=== PATIENT | male | born 1940 | race Caucasian/White ===

== ENCOUNTER 2016-09-16 16:06 | Inpatient (IN) | payer MEDICARE ==
[~2016-09-16] VITALS: Ht 167.6 cm; Wt 99.3 kg
[~2016-09-16 16:06] MED LIST: ALEN70TA3; AMIT10TA PO; CALC600T4; DOXA2TAB9; DOXA2TAB9 PO; GABA600T14 PO; GUAI600T53 PO; IPRA14.7; LEVO500T33 PO; LISI5TAB; LOVA20TA2 PO; METF-86 PO; MORP60CA16 PO; OXYC10TA32 PO; PERFORMIST; PRED10TA14; PRED20TA PO; TAMS-11 PO; [UNRECOGNIZED DRUG - OTHER]
[2016-09-16] MEDS ORDERED: ONDANSETRON 2MG/ML, 2ML IVPush ONE (17:00)
[2016-09-16 18:06] LABS: BLOOD UREA NITROGEN 32 mg/dL (7-18)
[2016-09-16 18:10] LABS: DIFF TOTAL CELLS COUNTED 100 CELL DIFF
[2016-09-16 18:12] LABS: VERIFY COUNTS? YES
[2016-09-16] MEDS ORDERED: ONDANSETRON 2MG/ML, 2ML ONE (18:16)
[2016-09-16] MEDS ORDERED: CEFTRIAXONE PMX 1GM/50ML 50 ML ONE ×2 (18:16→22:47)
[2016-09-16] MEDS ORDERED: HYDROmorphone 1 MG/ML, 1ML ONE ×2 (18:16→19:41)
[2016-09-16] MEDS: HYDROmorphone 1 MG/ML, 1ML IVPush PRN ×2 (18:18→19:43)
[2016-09-16] MEDS: CEFTRIAXONE PMX 1GM/50ML 50 ML IVPB ONE ×2 (18:24→18:48)
[2016-09-16] MEDS ORDERED: KETAMINE 10 MG/ML, 20ML ONE ×2 (19:53→21:16)
[2016-09-16] MEDS ORDERED: KETAMINE 100 MG/ML, 5ML IV ONE (20:00)
[2016-09-16] MEDS ORDERED: SODIUM CHLORIDE 0.9% 1,000ML IVBOLUS ONE ×2 (21:00→21:30)
[2016-09-16] MEDS ORDERED: LIDOCAINE 1%, 20ML ONE (21:54)
[2016-09-16 22:22] LABS: GLUCOSE, CSF 94 mg/dL (40-80)
[2016-09-16] MEDS ORDERED: KETAMINE 10 MG/ML, 20ML IV ONE (22:30)
[2016-09-16] MEDS ORDERED: VANCOMYCIN PER PHARMACY MC PRN ×2 (23:00)
[2016-09-16] MEDS ORDERED: CEFTRIAXONE PMX 1GM/50ML 50 ML IVPB ONE (23:00)
[2016-09-16] MEDS ORDERED: CEFTRIAXONE PMX 2GM/50ML 50 ML IV SCH (23:00)
[2016-09-16] MEDS ORDERED: VANCOMYCIN 2,000 MG in SODIUM CHLORIDE 0.9% 500 ML IV ONE (23:00)
[2016-09-16] MEDS: SODIUM CHLORIDE 0.9% 1,000 ML IV SCH (23:28)
[2016-09-16] MEDS ORDERED: BISACODYL 10 MG SUPP PR PRN (23:30)
[2016-09-16] MEDS: SODIUM CHLORIDE 0.9% IV SCH (23:30)
[2016-09-16] MEDS: ACYCLOVIR IV SCH (23:30)
[2016-09-16] MEDS ORDERED: ONDANSETRON 2MG/ML, 2ML IVP PRN (23:30)
[2016-09-16] MEDS ORDERED: INSULIN SINGLE DOSE, ER SQ-INSULIN ONE (23:53)
[2016-09-16] MEDS: INSULIN REGULAR 100 UNITS/ML, 3ML VIAL SQ-INSULIN SCH (23:55)
[2016-09-17] MEDS ORDERED: HYDROmorphone 1 MG/ML, 1ML ONE (00:44)
[2016-09-17] MEDS: HYDROmorphone 2 MG/ML, 1ML IV PRN ×6 (00:47→20:16)
[2016-09-17] MEDS ORDERED: HALOPERIDOL 5 MG/ML ONE (00:48)
[2016-09-17] MEDS ORDERED: HALOPERIDOL 5 MG/ML IV PRN ×2 (01:00)
[2016-09-17] MEDS ORDERED: PHARMACOKINETIC CONSULTATION MC ONE (02:00)
[2016-09-17] MEDS ORDERED: PHARMACOKINETIC MONITORING MC PRN (02:00)
[2016-09-17] MEDS ORDERED: SULFAMETH./TRIMETHOPRIM 10 ML in DEXTROSE 5% 250 ML IV SCH (03:00)
[2016-09-17] MEDS ORDERED: LIDOCAINE GEL 2%, 5ML TP STA ×2 (03:22→03:38)
[2016-09-17 04:47] LABS: ASPARTATE AMINO TRANSFERASE 31 U/L (15-37); BLOOD UREA NITROGEN 33 mg/dL (7-18)
[2016-09-17 05:06] VITALS: BP 117/54
[2016-09-17] MEDS: INSULIN REGULAR 100 UNITS/ML, 3ML VIAL SQ-INSULIN SCH ×3 (05:33→17:55)
[2016-09-17 05:50] VITALS: BP 154/85
[2016-09-17] MEDS: DEXAMETHASONE 4 MG/ML, 1ML IVPush SCH ×3 (07:59→20:16)
[2016-09-17] MEDS: SODIUM CHLORIDE 0.9% IV SCH (07:59)
[2016-09-17] MEDS: ACYCLOVIR IV SCH (07:59)
[2016-09-17] MEDS ORDERED: PROPOFOL 10 MG/ML, 100ML IV ONE (08:00)
[2016-09-17] MEDS ORDERED: PROPOFOL 10 MG/ML, 20ML ONE (08:00)
[2016-09-17] MEDS ORDERED: VECURONIUM 10 MG ONE (08:00)
[2016-09-17] MEDS ORDERED: ALBUTEROL/IPRATROPIUM 2.5MG/0.5MG, 3 ML ONE (08:29)
[2016-09-17] MEDS: SODIUM CHLORIDE 0.9% 1,000 ML IV SCH ×2 (09:19→23:00)
[2016-09-17] MEDS: VANCOMYCIN 2,000 MG in SODIUM CHLORIDE 0.9% 500 ML IV SCH ×3 (09:21→23:57)
[2016-09-17] MEDS ORDERED: RIFAMPIN 600 MG IVPB SCH (10:30)
[2016-09-17] MEDS ORDERED: PROPOFOL 10 MG/ML, 20ML IVPush ONE (11:00)
[2016-09-17] MEDS ORDERED: ALBUTEROL/IPRATROPIUM 2.5MG/0.5MG, 3 ML NPPB SCH (11:00)
[2016-09-17 12:35] LABS: ABG COLLECTION SITE RIGHT RADIAL; COLLATERAL CIRCULATION TESTING NORMAL
[2016-09-17] MEDS ORDERED: GADOBUTROL 10 MMOL/10 ML PFS ONE (17:18)
[2016-09-17] MEDS: ACETAMINOPHEN 650 MG SUPP PR PRN (17:49)
[2016-09-17] MEDS: ALBUTEROL/IPRATROPIUM 2.5MG/0.5MG, 3 ML INLINE SCH ×2 (19:13→22:26)
[2016-09-17] MEDS: PROPOFOL 100 ML IV PRN (20:16)
[2016-09-18] MEDS: HYDROmorphone 2 MG/ML, 1ML IV PRN ×6 (00:28→22:18)
[2016-09-18] MEDS: INSULIN REGULAR 100 UNITS/ML, 3ML VIAL SQ-INSULIN SCH ×5 (00:31→23:30)
[2016-09-18] MEDS: DEXAMETHASONE 4 MG/ML, 1ML IVPush SCH ×4 (02:05→20:01)
[2016-09-18] MEDS: PROPOFOL 100 ML IV PRN ×3 (02:06→19:35)
[2016-09-18] MEDS: ALBUTEROL/IPRATROPIUM 2.5MG/0.5MG, 3 ML INLINE SCH ×6 (02:50→21:56)
[2016-09-18 04:00] VITALS: BP 118/56
[2016-09-18 05:16] LABS: ABG COLLECTION SITE LEFT RADIAL; BLOOD UREA NITROGEN 29 mg/dL (7-18); COLLATERAL CIRCULATION TESTING NORMAL
[2016-09-18 05:21] LABS: ASPARTATE AMINO TRANSFERASE 100 U/L (15-37)
[2016-09-18] MEDS: SODIUM CHLORIDE 0.9% 1,000 ML IV SCH (07:34)
[2016-09-18] MEDS: INSULIN DETEMIR 100 UNITS/ML, PEN SQ-INSULIN SCH ×2 (09:36→21:04)
[2016-09-18] MEDS: RIFAMPIN 600 MG in SODIUM CHLORIDE 0.9% 100 ML IV SCH (09:36)
[2016-09-18] MEDS: VANCOMYCIN 2,000 MG in SODIUM CHLORIDE 0.9% 500 ML IV SCH ×2 (09:38→11:05)
[2016-09-18] MEDS: OXYcodone 5 MG/5 ML ORAL.SOL UDC PO PRN ×2 (11:09→19:58)
[2016-09-18] MEDS ORDERED: methylPREDNISolone SOD SUCC 125 MG/2 ML ONE (13:23)
[2016-09-18] MEDS ORDERED: BUPIVACAINE/PF-EPI 0.25% 1:200K ONE (13:23)
[2016-09-18] MEDS ORDERED: THROMBIN 5,000 UNIT VIAL TP ONE (13:24)
[2016-09-18] MEDS ORDERED: BACITRACIN 50,000 UNIT ONE (13:24)
[2016-09-18] MEDS ORDERED: MIDAZOLAM 1 MG/ML, 2ML ONE (13:48)
[2016-09-18] MEDS ORDERED: FENTANYL PF 250 MCG/5ML ONE ×2 (13:49→16:05)
[2016-09-18] MEDS ORDERED: BACITRACIN OINT 500U/GM, 15 GM ONE (14:04)
[2016-09-18] MEDS ORDERED: PROPOFOL 10 MG/ML, 20ML ONE (14:25)
[2016-09-18] MEDS ORDERED: ROCURONIUM 10 MG/ML ONE (14:25)
[2016-09-18] MEDS ORDERED: PHENYLEPHRINE 10 MG/ML ONE (14:25)
[2016-09-18] MEDS ORDERED: SUCCINYLCHOLINE 20 MG/ML, 10ML ONE (14:25)
[2016-09-18] MEDS ORDERED: KETAMINE 10 MG/ML, 20ML ONE (14:29)
[2016-09-18] MEDS ORDERED: VANCOMYCIN 1,000 MG ONE (14:59)
[2016-09-18] MEDS ORDERED: DIAZEPAM 5 MG/ML, 2ML IVPush PRN (17:00)
[2016-09-18] MEDS ORDERED: PHARMACY MAY ADJ FOR RENAL FX MC PRN (17:00)
[2016-09-18] MEDS ORDERED: ONDANSETRON 2MG/ML, 2ML IVPush PRN (17:00)
[2016-09-18 18:07] LABS: ABG COLLECTION SITE RIGHT RADIAL; COLLATERAL CIRCULATION TESTING NORMAL
[2016-09-18] MEDS ORDERED: VANCOMYCIN PMX 1GM/200ML 200 ML IV ONE (22:00)
[2016-09-19] MEDS: OXYcodone 5 MG/5 ML ORAL.SOL UDC PO PRN ×3 (01:21→10:51)
[2016-09-19] MEDS: SODIUM CHLORIDE 0.9% 1,000 ML IV SCH ×3 (01:36→17:26)
[2016-09-19] MEDS: PROPOFOL 100 ML IV PRN ×2 (01:37→06:13)
[2016-09-19] MEDS: DEXAMETHASONE 4 MG/ML, 1ML IVPush SCH ×2 (02:33→17:26)
[2016-09-19] MEDS: ALBUTEROL/IPRATROPIUM 2.5MG/0.5MG, 3 ML INLINE SCH ×5 (03:00→23:00)
[2016-09-19 04:00] VITALS: BP 142/56
[2016-09-19 04:57] LABS: ABG COLLECTION SITE LEFT RADIAL; COLLATERAL CIRCULATION TESTING NORMAL
[2016-09-19] MEDS: INSULIN REGULAR 100 UNITS/ML, 3ML VIAL SQ-INSULIN SCH ×3 (05:20→17:07)
[2016-09-19 05:26] LABS: ASPARTATE AMINO TRANSFERASE 82 U/L (15-37); BLOOD UREA NITROGEN 28 mg/dL (7-18)
[2016-09-19] MEDS: HYDROmorphone 2 MG/ML, 1ML IV PRN ×3 (08:19→18:35)
[2016-09-19] MEDS: RIFAMPIN 600 MG in SODIUM CHLORIDE 0.9% 100 ML IV SCH (08:56)
[2016-09-19] MEDS: INSULIN DETEMIR 100 UNITS/ML, PEN SQ-INSULIN SCH ×2 (09:00→21:17)
[2016-09-19] MEDS: VANCOMYCIN 2,000 MG in SODIUM CHLORIDE 0.9% 500 ML IV SCH ×2 (10:51→21:17)
[2016-09-19] MEDS ORDERED: hydrALAzine 20 MG/ML, 1ML IV PRN ×2 (13:30)
[2016-09-19] MEDS: morphine SULFATE 60 MG TABLET.ER PO SCH (14:26)
[2016-09-19] MEDS ORDERED: FUROSEMIDE 40 MG/4 ML IV ONE (16:30)
[2016-09-19] MEDS: ACETAMINOPHEN 650 MG SUPP PR PRN (17:37)
[2016-09-19] MEDS: morphine SULFATE 10 MG/ML, 1ML IVPush PRN (21:21)
[2016-09-20] MEDS: INSULIN REGULAR 100 UNITS/ML, 3ML VIAL SQ-INSULIN SCH ×4 (01:05→18:27)
[2016-09-20] MEDS: morphine SULFATE 60 MG TABLET.ER PO SCH ×2 (02:30→14:00)
[2016-09-20] MEDS: ALBUTEROL/IPRATROPIUM 2.5MG/0.5MG, 3 ML INLINE SCH ×3 (03:00→11:00)
[2016-09-20] MEDS: HYDROmorphone 2 MG/ML, 1ML IV PRN ×2 (03:17→08:37)
[2016-09-20 05:48] VITALS: BP 172/65
[2016-09-20] MEDS: ACETAMINOPHEN 650 MG SUPP PR PRN (05:48)
[2016-09-20 05:57] LABS: BLOOD UREA NITROGEN 29 mg/dL (7-18)
[2016-09-20] MEDS: DEXAMETHASONE 4 MG/ML, 1ML IVPush SCH ×2 (06:44→18:27)
[2016-09-20] MEDS ORDERED: PROPOFOL 10 MG/ML, 20ML ONE (08:00)
[2016-09-20] MEDS ORDERED: VECURONIUM 10 MG ONE (08:00)
[2016-09-20] MEDS ORDERED: PROPOFOL 10 MG/ML, 100ML IV ONE (08:00)
[2016-09-20] MEDS: SODIUM CHLORIDE 0.9% 1,000 ML IV SCH (08:00)
[2016-09-20] MEDS ORDERED: FUROSEMIDE 40 MG/4 ML ONE (08:17)
[2016-09-20] MEDS ORDERED: FUROSEMIDE 40 MG/4 ML IV ONE (08:30)
[2016-09-20] MEDS: FUROSEMIDE 40 MG/4 ML IV SCH ×2 (08:37→20:49)
[2016-09-20] MEDS: RIFAMPIN 600 MG in SODIUM CHLORIDE 0.9% 100 ML IV SCH (10:28)
[2016-09-20] MEDS: VANCOMYCIN 2,000 MG in SODIUM CHLORIDE 0.9% 500 ML IV SCH ×2 (10:28→22:06)
[2016-09-20] MEDS ORDERED: PROPOFOL 10 MG/ML, 20ML IV ONE (11:00)
[2016-09-20] MEDS: INSULIN DETEMIR 100 UNITS/ML, PEN SQ-INSULIN SCH ×2 (11:33→20:49)
[2016-09-20] MEDS: PROPOFOL 100 ML IV PRN ×4 (11:34→22:06)
[2016-09-20 12:19] LABS: ABG COLLECTION SITE RIGHT BRACHIAL; COLLATERAL CIRCULATION TESTING NORMAL
[2016-09-20] MEDS ORDERED: PROPOFOL 100 ML IV PRN (12:30)
[2016-09-20] MEDS: ALBUTEROL/IPRATROPIUM 2.5MG/0.5MG, 3 ML NPPB SCH (22:15)
[2016-09-21] MEDS: morphine SULFATE 60 MG TABLET.ER PO SCH ×2 (01:00→13:37)
[2016-09-21] MEDS: INSULIN REGULAR 100 UNITS/ML, 3ML VIAL SQ-INSULIN SCH ×5 (01:00→22:42)
[2016-09-21] MEDS: ALBUTEROL/IPRATROPIUM 2.5MG/0.5MG, 3 ML NPPB SCH ×6 (01:58→23:00)
[2016-09-21] MEDS: HYDROmorphone 2 MG/ML, 1ML IV PRN ×2 (03:45→22:23)
[2016-09-21] MEDS: PROPOFOL 100 ML IV PRN ×5 (03:46→23:56)
[2016-09-21 04:00] VITALS: BP 98/45
[2016-09-21] MEDS: ACETAMINOPHEN 650 MG SUPP PR PRN (04:00)
[2016-09-21 04:58] LABS: ABG COLLECTION SITE NOT DOCUMENTED
[2016-09-21 05:17] LABS: BLOOD UREA NITROGEN 39 mg/dL (7-18)
[2016-09-21 05:18] LABS: ASPARTATE AMINO TRANSFERASE 48 U/L (15-37)
[2016-09-21] MEDS: DEXAMETHASONE 4 MG/ML, 1ML IVPush SCH ×2 (06:04→17:57)
[2016-09-21] MEDS: VANCOMYCIN 2,000 MG in SODIUM CHLORIDE 0.9% 500 ML IV SCH ×2 (10:14→21:56)
[2016-09-21] MEDS: INSULIN DETEMIR 100 UNITS/ML, PEN SQ-INSULIN SCH ×2 (10:18→20:55)
[2016-09-21] MEDS: RIFAMPIN 600 MG in SODIUM CHLORIDE 0.9% 100 ML IV SCH (12:37)
[2016-09-21] MEDS ORDERED: POTASSIUM CHLORIDE 20 MEQ TAB.ER.PRT PO ONE (17:00)
[2016-09-22] MEDS: ALBUTEROL/IPRATROPIUM 2.5MG/0.5MG, 3 ML NPPB SCH ×6 (01:59→21:29)
[2016-09-22] MEDS: morphine SULFATE 60 MG TABLET.ER PO SCH ×2 (02:00→12:04)
[2016-09-22] MEDS: PROPOFOL 100 ML IV PRN ×6 (02:53→22:32)
[2016-09-22 04:00] VITALS: BP 122/44
[2016-09-22] MEDS: HYDROmorphone 2 MG/ML, 1ML IV PRN ×5 (05:26→22:51)
[2016-09-22] MEDS: INSULIN REGULAR 100 UNITS/ML, 3ML VIAL SQ-INSULIN SCH ×4 (05:30→23:06)
[2016-09-22] MEDS: DEXAMETHASONE 4 MG/ML, 1ML IVPush SCH ×2 (06:31→18:27)
[2016-09-22] MEDS: OXYcodone 5 MG/5 ML ORAL.SOL UDC PO PRN ×2 (07:52→14:28)
[2016-09-22 08:44] LABS: ABG COLLECTION SITE RIGHT RADIAL; COLLATERAL CIRCULATION TESTING NORMAL
[2016-09-22 08:55] LABS: BLOOD UREA NITROGEN 39 mg/dL (7-18)
[2016-09-22 08:58] LABS: ASPARTATE AMINO TRANSFERASE 29 U/L (15-37)
[2016-09-22] MEDS: INSULIN DETEMIR 100 UNITS/ML, PEN SQ-INSULIN SCH ×3 (09:00→20:35)
[2016-09-22] MEDS: VANCOMYCIN 2,000 MG in SODIUM CHLORIDE 0.9% 500 ML IV SCH ×2 (10:11→21:53)
[2016-09-22] MEDS: RIFAMPIN 600 MG in SODIUM CHLORIDE 0.9% 100 ML IV SCH (12:52)
[2016-09-22] MEDS: CLINDAMYCIN PMX 600MG/50ML 50 ML IV SCH ×2 (14:29→20:35)
[2016-09-23] MEDS: morphine SULFATE 60 MG TABLET.ER PO SCH ×2 (02:00→14:00)
[2016-09-23] MEDS: PROPOFOL 100 ML IV PRN ×6 (02:26→21:15)
[2016-09-23] MEDS: ALBUTEROL/IPRATROPIUM 2.5MG/0.5MG, 3 ML NPPB SCH ×6 (02:42→23:00)
[2016-09-23] MEDS: HYDROmorphone 2 MG/ML, 1ML IV PRN ×4 (03:28→19:40)
[2016-09-23 04:00] VITALS: BP 130/59
[2016-09-23 04:49] LABS: ABG COLLECTION SITE LEFT RADIAL; COLLATERAL CIRCULATION TESTING NORMAL
[2016-09-23 05:03] LABS: ASPARTATE AMINO TRANSFERASE 23 U/L (15-37); BLOOD UREA NITROGEN 35 mg/dL (7-18)
[2016-09-23] MEDS: CLINDAMYCIN PMX 600MG/50ML 50 ML IV SCH ×3 (05:26→21:15)
[2016-09-23] MEDS: DEXAMETHASONE 4 MG/ML, 1ML IVPush SCH ×2 (05:52→18:26)
[2016-09-23] MEDS: INSULIN REGULAR 100 UNITS/ML, 3ML VIAL SQ-INSULIN SCH ×4 (05:52→22:11)
[2016-09-23] MEDS: VANCOMYCIN 2,000 MG in SODIUM CHLORIDE 0.9% 500 ML IV SCH (09:56)
[2016-09-23] MEDS: INSULIN DETEMIR 100 UNITS/ML, PEN SQ-INSULIN SCH ×2 (09:58→22:00)
[2016-09-23] MEDS: RIFAMPIN 600 MG in SODIUM CHLORIDE 0.9% 100 ML IV SCH (15:24)
[2016-09-23] MEDS: VANCOMYCIN 1,800 MG in SODIUM CHLORIDE 0.9% 500 ML IV SCH (22:10)
[2016-09-24] MEDS: PROPOFOL 100 ML IV PRN ×7 (00:33→21:52)
[2016-09-24] MEDS: HYDROmorphone 2 MG/ML, 1ML IV PRN ×3 (01:42→17:24)
[2016-09-24] MEDS: morphine SULFATE 60 MG TABLET.ER PO SCH ×2 (02:00→14:00)
[2016-09-24] MEDS: ALBUTEROL/IPRATROPIUM 2.5MG/0.5MG, 3 ML NPPB SCH ×6 (02:37→22:06)
[2016-09-24 04:29] VITALS: BP 125/48
[2016-09-24] MEDS: CLINDAMYCIN PMX 600MG/50ML 50 ML IV SCH ×3 (04:30→20:59)
[2016-09-24 04:43] LABS: ASPARTATE AMINO TRANSFERASE 32 U/L (15-37); BLOOD UREA NITROGEN 29 mg/dL (7-18)
[2016-09-24 04:49] LABS: ABG COLLECTION SITE RIGHT RADIAL; COLLATERAL CIRCULATION TESTING NORMAL
[2016-09-24 05:33] LABS: ABG COLLECTION SITE ARTERIAL LINE
[2016-09-24] MEDS: INSULIN REGULAR 100 UNITS/ML, 3ML VIAL SQ-INSULIN SCH ×3 (06:02→17:23)
[2016-09-24] MEDS: DEXAMETHASONE 4 MG/ML, 1ML IVPush SCH ×2 (06:02→17:19)
[2016-09-24] MEDS: FAMOTIDINE 20 MG/2 ML IVPush SCH ×2 (09:05→20:44)
[2016-09-24] MEDS: QUETIAPINE 25MG TABLET PO SCH ×2 (09:05→17:22)
[2016-09-24] MEDS: VANCOMYCIN 1,800 MG in SODIUM CHLORIDE 0.9% 500 ML IV SCH (09:06)
[2016-09-24] MEDS: INSULIN DETEMIR 100 UNITS/ML, PEN SQ-INSULIN SCH ×2 (09:06→20:44)
[2016-09-24] MEDS: OXYcodone 5 MG/5 ML ORAL.SOL UDC PO PRN (09:22)
[2016-09-24] MEDS ORDERED: GADOBUTROL 10 MMOL/10 ML PFS ONE (12:24)
[2016-09-24] MEDS: RIFAMPIN 600 MG in SODIUM CHLORIDE 0.9% 100 ML IV SCH (16:06)
[2016-09-25] MEDS: INSULIN REGULAR 100 UNITS/ML, 3ML VIAL SQ-INSULIN SCH ×5 (00:04→22:02)
[2016-09-25] MEDS: QUETIAPINE 25MG TABLET PO SCH ×3 (00:04→17:29)
[2016-09-25] MEDS: HYDROmorphone 2 MG/ML, 1ML IV PRN (00:50)
[2016-09-25] MEDS: PROPOFOL 100 ML IV PRN ×2 (02:21→06:39)
[2016-09-25] MEDS: ALBUTEROL/IPRATROPIUM 2.5MG/0.5MG, 3 ML NPPB SCH ×6 (02:43→22:00)
[2016-09-25] MEDS: CLINDAMYCIN PMX 600MG/50ML 50 ML IV SCH ×3 (04:52→21:57)
[2016-09-25 05:00] VITALS: BP 127/45
[2016-09-25 05:06] LABS: ASPARTATE AMINO TRANSFERASE 24 U/L (15-37); BLOOD UREA NITROGEN 27 mg/dL (7-18)
[2016-09-25] MEDS: DEXAMETHASONE 4 MG/ML, 1ML IVPush SCH ×2 (06:17→17:29)
[2016-09-25 06:59] LABS: ABG COLLECTION SITE RIGHT RADIAL; COLLATERAL CIRCULATION TESTING NORMAL
[2016-09-25] MEDS: FAMOTIDINE 20 MG/2 ML IVPush SCH (09:25)
[2016-09-25] MEDS: INSULIN DETEMIR 100 UNITS/ML, PEN SQ-INSULIN SCH ×2 (09:26→22:00)
[2016-09-25] MEDS ORDERED: VANCOMYCIN 2,000 MG in SODIUM CHLORIDE 0.9% 250 ML IV SCH (14:00)
[2016-09-25] MEDS ORDERED: VANCOMYCIN 2,000 MG in SODIUM CHLORIDE 0.9% 500 ML IV SCH (14:00)
[2016-09-25] MEDS: RIFAMPIN 600 MG in SODIUM CHLORIDE 0.9% 100 ML IV SCH (14:04)
[2016-09-25] MEDS: CEFTAROLINE 600 MG in SODIUM CHLORIDE 0.9% 100 ML IV SCH (17:54)
[2016-09-25] MEDS: FAMOTIDINE 40 MG/5 ML ORAL SUSP PO/NG SCH (21:59)
[2016-09-25] MEDS: morphine SULFATE 10 MG/ML, 1ML IVPush PRN (22:19)
[2016-09-25] MEDS: GENTAMICIN 150 MG in SODIUM CHLORIDE 0.9% 100 ML IV SCH (23:54)
[2016-09-26] MEDS: QUETIAPINE 25MG TABLET PO SCH ×2 (01:02→08:44)
[2016-09-26] MEDS: ALBUTEROL/IPRATROPIUM 2.5MG/0.5MG, 3 ML NPPB SCH ×2 (01:29→07:00)
[2016-09-26] MEDS: morphine SULFATE 10 MG/ML, 1ML IVPush PRN ×2 (04:45→11:17)
[2016-09-26] MEDS: INSULIN REGULAR 100 UNITS/ML, 3ML VIAL SQ-INSULIN SCH (04:50)
[2016-09-26 05:10] LABS: ABG COLLECTION SITE RIGHT BRACHIAL
[2016-09-26 05:29] LABS: BLOOD UREA NITROGEN 27 mg/dL (7-18)
[2016-09-26 05:31] LABS: ASPARTATE AMINO TRANSFERASE 19 U/L (15-37)
[2016-09-26] MEDS: CLINDAMYCIN PMX 600MG/50ML 50 ML IV SCH (05:48)
[2016-09-26] MEDS: DEXAMETHASONE 4 MG/ML, 1ML IVPush SCH (06:09)
[2016-09-26] MEDS: CEFTAROLINE 600 MG in SODIUM CHLORIDE 0.9% 100 ML IV SCH (07:00)
[2016-09-26] MEDS ORDERED: POTASSIUM CHLORIDE 10% 40 MEQ/30 ML UDC PO ONE (07:30)
[2016-09-26] MEDS: FAMOTIDINE 40 MG/5 ML ORAL SUSP PO/NG SCH (08:44)
[2016-09-26] MEDS: INSULIN DETEMIR 100 UNITS/ML, PEN SQ-INSULIN SCH (08:46)
[2016-09-26] MEDS ORDERED: VANCOMYCIN 2,000 MG in SODIUM CHLORIDE 0.9% 500 ML IV SCH ×2 (09:07→14:00)
[2016-09-26] MEDS: GENTAMICIN 150 MG in SODIUM CHLORIDE 0.9% 100 ML IV SCH (10:01)
[2016-09-26] MEDS ORDERED: LORazepam 2 MG/ML, 1ML ONE (10:51)
[2016-09-26] MEDS ORDERED: morphine SULFATE 10 MG/ML, 1ML IV ONE (11:00)
[2016-09-26] MEDS ORDERED: ATROPINE OPHTH SOLN 1%, 2ML PO PRN (11:00)
[2016-09-26] MEDS ORDERED: LORazepam 2 MG/ML, 1ML IV ONE (11:00)
[2016-09-26] MEDS: LORazepam 2 MG/ML, 1ML IV PRN ×2 (12:59→14:50)
== END 2016-09-26 17:10 | disposition expired | DRG 853 ==
LOC: ED 20:23 → EDIP 23:08 → CCU 09-17 01:16
PROVIDERS: ADMIT Internal Medicine; ATTEND Internal Medicine
PROC: 009U3ZX Drainage of Spinal Canal, Percutaneous Approach, Diagnostic (ICD-10-PCS; principal; 2016-09-16)
PROC: 0T9B70Z Drainage of Bladder with Drainage Device, Via Natural or Artificial Opening (ICD-10-PCS; 2016-09-17)
PROC: 0BH17EZ Insertion of Endotracheal Airway into Trachea, Via Natural or Artificial Opening (ICD-10-PCS; 2016-09-17)
PROC: 5A1945Z Respiratory Ventilation, 24-96 Consecutive Hours (ICD-10-PCS; 2016-09-17)
PROC: 01N10ZZ Release Cervical Nerve, Open Approach (ICD-10-PCS; 2016-09-18)
PROC: 5A1955Z Respiratory Ventilation, Greater than 96 Consecutive Hours (ICD-10-PCS; 2016-09-20)
PROC: 0BH17EZ Insertion of Endotracheal Airway into Trachea, Via Natural or Artificial Opening (ICD-10-PCS; 2016-09-20)
PROC: 0B9J8ZZ Drainage of Left Lower Lung Lobe, Via Natural or Artificial Opening Endoscopic (ICD-10-PCS; 2016-09-20)
PROC: 0B9D8ZZ Drainage of Right Middle Lung Lobe, Via Natural or Artificial Opening Endoscopic (ICD-10-PCS; 2016-09-20)
PROC: 0B9F8ZZ Drainage of Right Lower Lung Lobe, Via Natural or Artificial Opening Endoscopic (ICD-10-PCS; 2016-09-20)
DX: A41.02 Sepsis due to Methicillin resistant Staphylococcus aureus (principal); G93.41 Metabolic encephalopathy; G06.1 Intraspinal abscess and granuloma; J69.0 Pneumonitis due to inhalation of food and vomit; G00.9 Bacterial meningitis, unspecified; J96.20 Acute and chronic respiratory failure, unspecified whether with hypoxia or hypercapnia; G06.2 Extradural and subdural abscess, unspecified; E44.0 Moderate protein-calorie malnutrition; L03.116 Cellulitis of left lower limb; E87.1 Hypo-osmolality and hyponatremia; F11.20 Opioid dependence, uncomplicated; J44.1 Chronic obstructive pulmonary disease with (acute) exacerbation; Z99.11 Dependence on respirator [ventilator] status; D63.8 Anemia in other chronic diseases classified elsewhere; E11.42 Type 2 diabetes mellitus with diabetic polyneuropathy; E66.01 Morbid (severe) obesity due to excess calories; E11.65 Type 2 diabetes mellitus with hyperglycemia; E78.5 Hyperlipidemia, unspecified; G47.33 Obstructive sleep apnea (adult) (pediatric); G89.4 Chronic pain syndrome; I10 Essential (primary) hypertension; I48.91 Unspecified atrial fibrillation; M19.079 Primary osteoarthritis, unspecified ankle and foot; Z99.81 Dependence on supplemental oxygen; M46.40 Discitis, unspecified, site unspecified; F32.9 Major depressive disorder, single episode, unspecified; M48.02 Spinal stenosis, cervical region; M81.0 Age-related osteoporosis without current pathological fracture; N40.1 Benign prostatic hyperplasia with lower urinary tract symptoms; T38.0X5A Adverse effect of glucocorticoids and synthetic analogues, initial encounter; Z51.5 Encounter for palliative care; Z66 Do not resuscitate; W18.30XA Fall on same level, unspecified, initial encounter; Y93.89 Activity, other specified; Y92.89 Other specified places as the place of occurrence of the external cause; Z68.36 Body mass index [BMI] 36.0-36.9, adult; Z79.52 Long term (current) use of systemic steroids; Z82.3 Family history of stroke; Z86.711 Personal history of pulmonary embolism; Z87.891 Personal history of nicotine dependence; Z79.899 Other long term (current) drug therapy; Z79.82 Long term (current) use of aspirin; Z88.1 Allergy status to other antibiotic agents; Z68.35 Body mass index [BMI] 35.0-35.9, adult
CPT/HCPCS: 31624; 36415; 36600; 62270; 70553; 71010; 72040; 72156; 72157; 72158; 74000; 80048; 80053; 80202; 81001; 82040; 82533; 82803; 82945; 82962; 83036; 83605; 83735; 84145; 84153; 84157; 85025; 85610; 85651; 85730; 86140; 87040; 87070; 87077; 87081; 87086; 87147; 87186; 87205; 87252; 87529; 89051; 93005; 93306; 94002; 94003; 94150; 94640; 94660; 96365; 96375; 96376; 99152; 99153; A9585; C1713; J0133; J0696; J0712; J1100; J1170; J1815; J1940; J2250; J2405; J2704; J3010; J3370; J7060; J7620; J0330; J0360; J1580; J1630; J2060; J2270; J2370; J2930; J7030; J7040; J7050; S0028